=== PATIENT | female | born 1965 | race African-American/Black ===

== ENCOUNTER 2021-10-12 13:32 | Outpatient (CLI) | payer OTHER | END 2021-10-12 13:33 | disposition home or self-care (01) | LOC: CSHMAMMO 13:32 | PROVIDERS: ATTEND Nurse Practitioner Family | DX: Z12.31 Encounter for screening mammogram for malignant neoplasm of breast (principal); Z80.3 Family history of malignant neoplasm of breast; Z98.82 Breast implant status | CPT/HCPCS: 77067 ==

== ENCOUNTER 2025-01-14 13:43 | Outpatient (CLI) | payer OTHER | END 2025-01-14 13:44 | disposition home or self-care (01) | LOC: CSHMAMMO 13:43 | PROVIDERS: ATTEND Nurse Practitioner Family | DX: Z12.31 Encounter for screening mammogram for malignant neoplasm of breast (principal); Z80.3 Family history of malignant neoplasm of breast; Z98.890 Other specified postprocedural states | CPT/HCPCS: 77067 ==